=== PATIENT | male | born 2000 ===

== ENCOUNTER 2023-11-02 11:48 | Outpatient (CLI) | payer BC, SELFPAY ==
--- NOTE | ~2023-11-02 | MR_ITS ---
EXAMINATION: MR elbow RT w con DATE: 11/02/2023 13:35 INDICATION: Right elbow dislocation. Right elbow pain. TECHNIQUE: Magnetic resonance imaging (MRI) of the right elbow was performed without intravenous cont rast after intra-articular injection of contrast (MR arthrogram). COMPARISON: None FINDINGS: Osseous/other: Bone alignment is normal. No fracture. There is edema-like marrow signal intensity in medial and late ral humeral epicondyles, radial head, and proximal ulna, likely stress reaction. Tendons: There is edema-like signal intensity in the pronator teres, flexor carpi ulnaris, and flexor digitoru m superficialis muscles, consistent with grade 1 strains. There is edema-like signal intensity and sm all hematoma in brachialis muscle, consistent with grade 2 strain. There is moderate to severe tendin opathy of the flexor tendons. There is edema-like signal intensity involving extensor digitorum and e xtensor carpi radialis longus muscles, consistent with grade 1 strains. There is moderate to severe t endinopathy of the extensor tendons. The biceps tendon and brachialis tendon are normal. Ligaments: There is a complete tear of radial collateral ligament. There is a complete tear of lateral ulnar col lateral ligament. There is a complete tear of ulnar collateral ligament. Cubital tunnel: There is increased signal in ulnar nerve, consistent with neuropathy. Fluid: The elbow joint is well distended by contrast. IMPRESSION: 1. Complete tears of radial collateral ligament, lateral ulnar collateral ligament, and ulnar collate ral ligament. 2. Tendinopathy and strains of the flexor and extensor muscle groups. 3. Increased signal in the ulnar nerve, consistent with neuropathy. Reviewed, dictated and finalized at location A. H MECHANIC IMPRESSION: 1. Complete tears of radial collateral ligament, lateral ulnar collateral ligam ent, and ulnar collateral ligament. 2. Tendinopathy and strains of the flexor and extensor muscle groups. 3. Increased signal in the ulnar nerve, consistent with neuropathy.
--- NOTE | ~2023-11-02 | XR_ITS ---
EXAMINATION: XR fl inj elbow RT for MR/CT DATE: 11/02/2023 13:16 INDICATION: Right elbow dislocation. Right elbow pain. TECHNIQUE: A time-out was performed to verify the patient's name, date of , and procedure to b e performed. The procedure including the risks, benefits, and alternatives was discussed with the pat ient. Risks discussed included bleeding and infection. The patient understood the risks and agreed to proceed. The skin overlying the right elbow joint was prepped and draped in usual sterile fashion. Anesthetic was administered with 1% lidocaine subcutaneously. A 23 G needle was advanced under fluor oscopic guidance into the joint. Subsequently, injectate consisting of 4 mL of 1:200 Multihance, 1:4 1% lidocaine, and 1:4 Omnipaque 240 was instilled. The needle was removed and the entry site was cl eaned and dressed. There were no immediate complications. Fluoroscopy exposure time was 0.1 minutes. The total number of images was 3. FINDINGS: Real-time fluoroscopy demonstrates the needle and contrast in the right elbow joint. IMPRESSION: 1. Successful right elbow joint injection of contrast for subsequent MR arthrography. Reviewed, dictated and finalized at location A. Y FOAM INSTALLER IMPRESSION: 1. Successful right elbow joint injection of contrast for subsequent MR arthrog soham.
== END 2023-11-02 11:49 ==
DX: S53.431A Radial collateral ligament sprain of right elbow, initial encounter (principal); X58.XXXA Exposure to other specified factors, initial encounter
CPT/HCPCS: 20605; 73222; 77002; A9577; Q9967